=== PATIENT | male | born 1960 | race Caucasian/White ===

== ENCOUNTER → 2017-10-20 | Outpatient (CLI) | payer BC ==
[~2017-10-20] MED LIST: OPTIRAY 320 IV PRN
--- NOTE | 2017-10-20 16:45 | DIAGNOSTIC IMAGING REPORT ---
ABD/PELVIS COMBO WITH ORAL CLINICAL HISTORY: 56 years-old Male presenting with HEPATOMEGALY. TECHNIQUE: Multidetector CT of the abdomen and pelvis was performed before and after the administration of intravenous contrast. IV contrast: 93 mL of Optiray 320. A dose lowering technique was used consistent with the principles of ALARA (as low as reasonably achievable). COMPARISON: Ultrasound from 01/04/2011. CT DOSE (mGy.cm): The estimated cumulative dose is 2234.01 mGy.cm. FINDINGS: [employer] topogram: Unremarkable. Lung bases: Lungs and pleural spaces clear. Top normal heart size. Coronary artery calcification. No pericardial or pleural effusion. Liver: Normal morphology. Density consistent with hepatic steatosis. Diffusely heterogeneous enhancement pattern of the liver. No discrete lesion. Patent hepatic vasculature. Biliary: No intrahepatic or extrahepatic biliary ductal dilatation. Gallbladder decompressed. Mild gallbladder wall thickening may be secondary to underdistention. Trace pericholecystic inflammatory change may be secondary. Pancreas: Mild parenchymal atrophy. Spleen: Enlarged measuring over 15 cm in maximal sagittal dimension. Adrenal glands: Normal. Kidneys and ureters: Normal. No hydronephrosis. No nephrolithiasis. Bladder: Circumferential bladder wall thickening. Pelvic organs: Prostate and seminal vesicles normal. Calcification of the vas deferentia likely implies underlying diabetes. Bowel: Few scattered diverticula noted in the descending colon. No bowel obstruction. The appendix is normal. Peritoneal cavity: Trace fluid in the peritoneal cavity. Mild peritoneal thickening may be present along the paracolic gutters. No free intraperitoneal gas. Lymph nodes: Numerous scattered subcentimeter lymph nodes likely reactive. Vasculature: Atherosclerosis of the normal caliber abdominal aorta. IVC patent. Prominent mesenteric vasculature. Esophageal/paraesophageal varices at the level of the gastroesophageal junction. Perigastric varices. Abdominal wall: Normal. Musculoskeletal: Normal. IMPRESSION: 1. Hepatic steatosis and significant heterogeneity of hepatic enhancement pattern. Given the associated trace peritoneal fluid, this could represent steatohepatitis. Correlate with liver function tests. 2. Suspected portal hypertension evidenced by splenomegaly and varices. The report will be called/faxed according to standard departmental protocol. Electronically signed by: Walt Mendiola M.D. 10/20/2017 4:44 PM Dictated Date/Time: 10/20/2017 4:34 PM
== END | disposition home or self-care (01) ==
LOC: C.CTS 15:56
PROVIDERS: ATTEND Internal Medicine
DX: R16.0 Hepatomegaly, not elsewhere classified (principal); K76.0 Fatty (change of) liver, not elsewhere classified

== ENCOUNTER 2020-07-12 14:09 | Observation (INO) ==
--- NOTE | 2020-07-12 15:32 | Emergency Department Note ---
Impression & Plan Angina pectoris, Elevated d-dimer, Cirrhosis ED Provider Note CHIEF COMPLAINT: Chest pain and shortness of breath HISTORY OF PRESENTING ILLNESS: This is a 59-year-old male who presents to the emergency department by private vehicle with complaints of intermittent chest pain and shortness of breath over the past several weeks, which first started in early May when he states he had a "mild heart attack" when he was still living in [place]. Patient states he currently has no symptoms and denies any pain, rating his pain level 0/10. He notes that his chest pain is usually in the middle of his chest and is a pressure, radiates into his neck, he denies any radiation into his back, shoulder or arm. He states he feels mostly short of breath at night when he is lying down, and the chest pain and shortness of breath have woken him up several times in the past few weeks. He notes that he does take Lasix and spironolactone, he has not felt that he had any increased swelling in his feet or legs recently. He does note that his abdomen is larger than usual, he felt that he just gained some weight because of being less active lately. He does note that he has a history of alcohol abuse and was told that he has early stages of liver cirrhosis, he is in the process of trying to get set up with gastroenterology for this. He states that he saw Dr. Hill relating to his recent chest pain and shortness of breath, and states Dr. Hill told him to come to the emergency department to have a cardiac cath. He notes that he was supposed to come in yesterday, but he had some things to take care of and was not able to come in until today. He denies any fevers or chills. He denies any exposures concerning for COVID-19. REVIEW OF SYSTEMS: A complete 10 point review of systems was reviewed with the patient with pertinent positives and negatives as per history of present illness. All else were negative. PAST MEDICAL HISTORY: Hypertension, type 2 diabetes, liver cirrhosis, GERD SOCIAL HISTORY: Lives at home with his , he is a former smoker, also notes former alcohol abuse (denies any use since 2019) ALLERGIES: No known allergies PHYSICAL EXAM: CONSTITUTIONAL: Pleasant and cooperative. Nontoxic-appearing and in no acute distress. Well appearing and well nourished. HEENT: Normocephalic, atraumatic. NECK: Supple, full active range of motion without discomfort. No JVD. RESPIRATORY: Diminished in the bases, otherwise clear to auscultation bilaterally with no wheezing, crackles, rhonchi or stridor. Equal expansion bilaterally. CARDIOVASCULAR: Regular rate and rhythm with no murmurs, rubs or gallops. Normal peripheral perfusion, 2+ distal pulses in all 4 extremities. No pitting edema. GASTROINTESTINAL: Soft, nontender, significantly distended with positive fluid wave. No palpable masses or HSM. Bowel sounds present in all quadrants. No CVA tenderness bilaterally. MUSCULOSKELETAL: Full range of motion of all joints without discomfort. INTEGUMENTARY: No rash or other significant dermatologic conditions noted. NEUROLOGIC: Alert and oriented X 4 with normal affect. Normal strength and sensation in all 4 extremities. Normal speech. Normal gait observed. ED COURSE AND MEDICAL DECISION MAKING: CC: Patient presenting with complaint of chest pain and shortness of breath DIFFERENTIAL DIAGNOSIS: Includes, but not limited to acute coronary syndrome, pulmonary embolism, aortic dissection, pneumothorax, pericarditis, myocarditis, anxiety, musculoskeletal pain, GERD, costochondritis, pneumonia, abdominal ascites, pulmonary edema/CHF, among others. INTERPRETATION OF LABS: Leukopenia, anemia, and thrombocytopenia (not new when compared to previous labs), hyperglycemia, no other significant electrolyte abnormalities, normal renal function, elevated T bili, otherwise normal liver enzymes and lipase. Troponin undetectable. Coagulation factors mildly elevated. Significantly elevated D-dimer. SARS-CoV-2 antigen negative. IMAGING: XR chest 1V portable CLINICAL HISTORY: Atypical chest pain COMPARISON STUDY: No previous studies for comparison. FINDINGS: The heart is at the upper limits of normal in size. There is no failur e. There is no focal pulmonary consolidation. There are no pleural effusions. There is mild hilar prominence likely vascular although mild adenopathy could appear similar. IMPRESSION: 1. AP portable study 2. No evidence of focal pulmonary consolidation 3. No evidence of failure ----- CHEST CTA for PULMONARY ARTERIES CT DOSE: 1454.57 mGycm HISTORY: Shortness of breath. Positive d-dimer. TECHNIQUE: Multiaxial CT images of the chest were performed following the intravenous administration of contrast to evaluate the pulmonary arteries. Maximal intensity projection images were also obtained. A dose lowering technique was utilized adhering to the principles of ALARA. COMPARISON STUDY: None. FINDINGS: Please refer to same day abdomen and pelvis CT for further evaluation of the abdominal structures. The heart is borderline enlarged. No pleural or pericardial effusions. Subcentimeter mediastinal lymph nodes do not meet CT criteria for pathologic involvement. No hilar lymphadenopathy. Mild bilateral gynecomastia. Normal esophagus. No fractures within the visualized osseous structures. Normal caliber thoracic aorta with no evidence for dissection. No filling defects within the pulmonary arteries to suggest pulmonary embolus. No pneumothorax. The central airways are patent. Mild respiratory motion artifact. No focal lung consolidations to suggest pneumonia. No evidence for pulmonary edema. Mild mosaic attenuation within the lungs suggestive of air-trapping. This can be seen in the setting of small airways disease. IMPRESSION: 1. No evidence for pulmonary embolus. 2. No focal lung consolidations to suggest pneumonia. 3. Mild mosaic attenuation within the lungs suggestive of air-trapping. This can be seen in the setting of small airways disease. 4. Borderline cardiomegaly. ----- CT OF THE ABDOMEN AND PELVIS WITH CONTRAST CLINICAL HISTORY: abd distention, short of breath, epigastric pain COMPARISON STUDY: CT of the abdomen and pelvis October 20, 2017. TECHNIQUE: Following IV administration of 118 mL of Optiray-320, axial images of the abdomen and pelvis were obtained from the lung bases to the proximal femurs. Images were reviewed in the axial, sagittal, and coronal planes. IV contrast was administered without complication. Automated exposure control was utilized for the study. A dose lowering technique was utilized adhering to the principles of ALARA. FINDINGS: Please note that the chest CT will be reported separately. No pneumatosis, free air or portal venous gas is present. Nodularity of the liver is noted. The lateral segment of the liver is enlarged. There is probable hepatic steatosis. The findings represent cirrhosis. The main, left and right portal veins are patent. No hepatic lesions are identified although sensitivity for detection of hypervascular lesions is diminished on this portal venous study. Moderate splenomegaly is noted. There is moderate ascites with extensive varices formation. An umbilical hernia is noted. Note is made of a tubular multiloculated fluid-filled focus adjacent to the umbilical hernia that measures 5.1 x 2.3 cm. There is no evidence for a bowel obstruction. The adrenal glands, kidneys and pancreas are unremarkable. There is no biliary or pancreatic ductal dilatation. Moderate gallbladder wall thickening is noted. No acute fracture or suspicious lesion is identified within visual skeletal structures. There is colonic diverticulosis without evidence for acute diverticulitis. IMPRESSION: 1. Cirrhosis with manifestations of portal hypertension including moderate ascites, moderate splenomegaly and extensive varices formation. Patent main, left and right portal veins. Ascites within an umbilical hernia. 2. Moderate gallbladder wall thickening, a nonspecific finding in the setting of cirrhosis. 3. Colonic diverticulosis without evidence for acute diverticulitis. Normal appendix. No bowel obstruction. EKG: Shows normal sinus rhythm with a rate of 64 bpm, prolonged QT, no ST elevation or depression, no ectopy by my interpretation. No previous EKGs available for comparison. MEDICATION RECONCILIATION: I attest that I have personally reviewed the patient's current medication list. INITIAL VITAL SIGNS REVIEW: I reviewed the patient's initial vital signs and interpret them as follows: T: Afebrile; BP: Normotensive; HR: Within normal limits; RR: Within normal limits; Pulse Ox: Within normal limits on room air. MDM SUMMARY: Patient was evaluated at bedside, history and physical exam performed. Patient is alert and oriented, in no acute distress, resting calmly in the stret kaitlynn. He denies any chest pain, shortness of breath, or abdominal pain. He currently has no complaints. Patient does have significant abdominal distention with positive fluid wave consistent with abdominal ascites. His lungs are clear and he does not appear to be fluid overloaded otherwise. Cardiac monitoring: An order was placed for continuous cardiac monitoring. The monitor shows a rate of 68 bpm with normal sinus rhythm. Based on the patient's complaints of intermittent chest pain and shortness of breath, I am concerned for unstable angina. Review of Dr. Hill's outpatient note from yesterday also indicates a concern for unstable angina and wanted the patient to be admitted for a scheduled cardiac cath. His heart score is 5 points, considered moderate risk. Orders were placed for labs including troponin and D-dimer, EKG, and chest x-ray to evaluate for chest pain/shortness of breath. Patient discussed with Dr. Hutchison, who agrees with my assessment, plan, and disposition. Labs and imaging reviewed as above, labs notable for pancytopenia, this does not appear to be new when compared to previous outpatient labs. His troponin was undetectable. His D-dimer was remarkably elevated, because of this a CTA of the chest was ordered to rule out PE. Given his abdominal ascites, I did opt to perform CT of the abdomen/pelvis as well at this time. CT imaging did not demonstrate any evidence for PE or pneumonia. There is borderline cardiomegaly. Patient does have findings of cirrhosis with portal hypertension and moderate ascites on CT of the abdomen. I spoke on the phone with Dr. Hill, Cardiology, he did request that the patient be admitted to internal medicine and cardiology will plan to get him scheduled for cardiac cath during his admission. He also requested the patient be given a one-time dose of 40 mg IV Lasix, this was ordered per his request. He did recommend that the patient get evaluated by GI for his liver disease while he is admitted as well. Patient reassessed multiple times throughout ED stay, he has remained hemodynamically stable, afebrile, and symptom-free. He was updated on all results and plan for admission, all questions were answered to the best of my ability and the patient was agreeable to this plan. I [facility] on the phone [facility], who agreed to evaluate the patient for the admission. GI will be consulted by the inpatient team. Patient was stable at time of admission. The chart was completed utilizing [employer] Speech voice recognition software. Grammatical errors, random word insertions, pronoun errors, and incomplete sentences are an occasional consequence of this system due to software limitations, ambient noise, and hardware issues. Any formal questions or concerns about the content, text, or information contained within the body of this dictation should be directly addressed to the nurse practitioner for clarification. Past Med/Surg History Medical History (Updated 07/12/20 @ 22:08 by LORETA Cervantes) Cirrhosis Diabetes mellitus, type II Esophageal varices Surgical History (Updated 07/12/20 @ 18:54 by Cherri Hassan PA-C) History of colonoscopy History of esophagogastroduodenoscopy (EGD) Family History (Updated 07/12/20 @ 19:30 by Cherri Hassan PA-C) Other Cancer Diabetes Social History (Updated 07/12/20 @ 19:30 by Cherri Hassan PA-C) Smoking Status: Former smoker Hx Alcohol Use: Yes (Former heavy ETOH use. Reports last used in 2019) Hx Substance Use: No Feels Safe at Home: Yes Allergies Allergies Allergy/AdvReac Type Severity Reaction Status Date / Time No Known Allergies Allergy Unverified 07/12/20 16:58 Home Meds Home Medications Medication Instructions Recorded Confirmed ascorbic acid (vitamin C) [Vitamin 500 mg PO 2XWK 07/12/20 07/12/20 C] aspirin 81 mg PO DAILY 07/12/20 07/12/20 cholecalciferol (vitamin D3) 25 mcg PO 2XWK 07/12/20 07/12/20 [Vitamin D3] furosemide 20 mg PO DAILY 07/12/20 07/12/20 glyburide 1.25 mg PO DAILY 07/12/20 07/12/20 metformin 500 mg PO BID 07/12/20 07/12/20 metoprolol succinate 25 mg PO DAILY 07/12/20 07/12/20 multivitamin 1 tab PO DAILY 07/12/20 07/12/20 nitroglycerin 0.4 mg SUBLINGUAL DIRECTED PRN 07/12/20 07/12/20 omeprazole 40 mg PO BID 07/12/20 07/12/20 spironolactone 50 mg PO DAILY 07/12/20 07/12/20 trazodone 50 mg PO HS PRN 07/12/20 07/12/20 vitamin B complex [B Complex] 1 cap PO 3XWK 07/12/20 07/12/20 Results & Data (ED) Vital Signs Vital Signs - 24 hr 07/12/20 14:12 07/12/20 15:28 07/12/20 16:09 Temperature 36.3 C L Temperature Source Temporal Artery Scan Pulse Rate 68 Pulse Rate [Finger] 65 Respiratory Rate 20 16 Respiratory Effort / Characteristics Non-Labored Spontaneous Respiratory Depth Normal Respiratory Pattern Regular Blood Pressure 137/64 Blood Pressure [Right Arm] 122/65 Blood Pressure Mean 88 Blood Pressure Mean [Right Arm] 84 Pulse Oximetry 99 96 95 Oxygen Delivery Method Room Air Room Air Room Air Sepsis Recent Fever Within 48 Hours No Sepsis New/Unexplained Change in Mental Status N/A Sepsis Action Taken by Nursing No Action Required 07/12/20 16:53 07/12/20 18:05 Temperature Temperature Source Pulse Rate Pulse Rate [Finger] 74 76 Respiratory Rate 16 16 Respiratory Effort / Characteristics Non-Labored Respiratory Depth Normal Respiratory Pattern Blood Pressure Blood Pressure [Right Arm] 129/69 128/70 Blood Pressure Mean Blood Pressure Mean [Right Arm] 89 89 Pulse Oximetry 96 96 Oxygen Delivery Method Sepsis Recent Fever Within 48 Hours Sepsis New/Unexplained Change in Mental Status Sepsis Action Taken by Nursing Laboratory Data Result diagrams: 07/12/20 15:20 07/12/20 15:20 Lab Results 07/12/20 07/12/20 07/12/20 Range/Units 15:20 15:20 15:20 WBC 3.00 L (4.8-10.8) K/uL RBC 3.62 L (4.7-6.1) M/uL Hgb 9.2 L (14.0-18.0) g/dL Hct 31.3 L (42-52) % MCV 86.5 (80-100) fL MCH 25.4 (25-34) pg MCHC 29.4 L (32-36) g/dL RDW Std Deviation 46.2 (36.4-46.3) fL RDW Coeff of Lizandro 14.6 H (11.5-14.5) % Plt Count 69 L (130-400) K/uL MPV 9.5 (7.4-10.4) fL Immature Gran % (Auto) 0.0 % Neut % (Auto) 48.2 % Lymph % (Auto) 31.7 % [place] % (Auto) 15.7 % Eos % (Auto) 3.7 % Baso % (Auto) 0.7 % Neut # (Auto) 1.45 (1.4-6.5) K/uL Lymph # (Auto) 0.95 L (1.2-3.4) K/uL [place] # (Auto) 0.47 (0.11-0.59) K/uL Eos # (Auto) 0.11 (0-0.5) K/uL Baso # (Auto) 0.02 (0-0.2) K/uL Immature Gran # (Auto) 0.00 (0.00-0.02) K/uL Platelet Estimate Decreased L (Normal) PT 14.8 H (9.0-12.0) Seconds INR 1.4 H (0.9-1.1) APTT 28.1 (21.0-31.0) Seconds PTT Ratio 1.0 D-Dimer 4380 H* (0-500) ug/L FEU Sodium 137 (136-145) mmol/L Potassium 4.0 (3.5-5.1) mmol/L Chloride 107 (98-107) mmol/L Carbon Dioxide 26 (21-32) mmol/L Anion Gap 4.0 (3-11) BUN 7 (7-18) mg/dl Creatinine 0.71 (0.6-1.4) mg/dl Est Cr Clr Drug Dosing 120.7 ml/min Est GFR ( Amer) 117.4 Est GFR (Non-Af Amer) 101.3 BUN/Creatinine Ratio 10.1 (10-20) Glucose 175 H (70-99) mg/dl Calcium 8.4 L (8.5-10.1) mg/dl Total Bilirubin 1.5 H (0.2-1) mg/dl AST 28 (15-37) U/L ALT 23 (12-78) U/L Alkaline Phosphatase 97 (45-117) U/L Troponin I < 0.015 (0-0.045) ng/ml Total Protein 7.5 (6.4-8.2) gm/dl Albumin 3.1 L (3.4-5.0) gm/dl Globulin 4.4 H (2.5-4.0) gm/dl Albumin/Globulin Ratio 0.7 L (0.9-2) Lipase 145 (73-393) U/L Administered Medications Discontinued Medications Furosemide (Furosemide 40 Mg/4 Ml Vial) 40 mg IV NOW STA Stop: 07/12/20 17:19 Last Admin: 07/12/20 18:07 Dose: 40 mg Documented by: [id number] Ioversol (Optiray 320 125ml) 118 ml IV ONCE ONE Stop: 07/12/20 16:43 Last Admin: 07/12/20 16:43 Dose: 118 ml Documented by: [id number] Discharge Plan Visit Data Chief Complaint: Cardiac Assessment Stated Complaint: REFERRED BY ED Provider: Yaw Hutchison ED Midlevel Provider: Angela Parisi Discharge Problem: Angina pectoris, Elevated d-dimer, Cirrhosis Patient Disposition: Admitted As Inpatient Condition: Good Discharge Instructions Interventions: ED Discharge Assessment Last Done: 07/12/20 20:23 Discharge Problem: Cirrhosis Qualifiers: Hepatic cirrhosis type: alcoholic cirrhosis Ascites presence: with ascites Qualified Code(s): K70.31 - Alcoholic cirrhosis of liver with ascites
--- NOTE | 2020-07-12 15:49 | XRay Report ---
XR chest 1V portable CLINICAL HISTORY: Atypical chest pain COMPARISON STUDY: No previous studies for comparison. FINDINGS: The heart is at the upper limits of normal in size. There is no failure. There is no focal pulmonary consolidation. There are no pleural effusions. There is mild hilar prominence likely vascul ar although mild adenopathy could appear similar.[ IMPRESSION: 1. AP portable study 2. No evidence of focal pulmonary consolidation 3. No evidence of failure ACT 112: Negative or not required by law. Electronically signed by: Kodak Rubi M.D. 07/12/2020 3:48 PM
[2020-07-12 16:05] LABS: INR 1.4 (0.9-1.1); Partial Thromboplastin Time 28.1 Seconds (21.0-31.0); Prothrombin Time 14.8 Seconds (9.0-12.0)
[2020-07-12 16:07] LABS: Alanine Aminotransferase 23 U/L (12-78); Albumin Level 3.1 gm/dl (3.4-5.0); Aspartate Aminotransferase 28 U/L (15-37); BUN Creatinine Ratio 10.1 (10-20); Blood Urea Nitrogen 7 mg/dl (7-18); Calcium 8.4 mg/dl (8.5-10.1); Carbon Dioxide 26 mmol/L (21-32); Chloride 107 mmol/L (98-107); Creatinine Clr Calc Pharmacy 120.7 ml/min; Est GFR (African American) 117.4; Est GFR (Non-African American) 101.3; Glucose 175 mg/dl (70-99); Lipase 145 U/L (73-393); Sodium 137 mmol/L (136-145)
[2020-07-12 16:12] LABS: Albumin Globulin Ratio 0.7 (0.9-2); Alkaline Phosphatase 97 U/L (45-117); Bilirubin,Total 1.5 mg/dl (0.2-1); Globulin 4.4 gm/dl (2.5-4.0); Total Protein 7.5 gm/dl (6.4-8.2); Troponin I < 0.015 ng/ml (0-0.045)
[2020-07-12 16:18] LABS: Hematocrit (blood only) 31.3 % (42-52); Hemoglobin 9.2 g/dL (14.0-18.0); Mean Corpuscular Hemoglobin 25.4 pg (25-34); Mean Corpuscular Hgb Conc 29.4 g/dL (32-36); Mean Corpuscular Volume 86.5 fL (80-100); Mean Platelet Volume 9.5 fL (7.4-10.4); Platelet Count 69 K/uL (130-400); RDW Coefficient of Variation 14.6 % (11.5-14.5); RDW Standard Deviation 46.2 fL (36.4-46.3); Red Blood Count 3.62 M/uL (4.7-6.1)
[2020-07-12 16:19] LABS: Basophils # (auto) 0.02 K/uL (0-0.2); Basophils % (auto) 0.7 %; Eosinophils # (auto) 0.11 K/uL (0-0.5); Eosinophils % (auto) 3.7 %; Lymphocytes # (auto) 0.95 K/uL (1.2-3.4); Lymphocytes % (auto) 31.7 %; Monocytes # (auto) 0.47 K/uL (0.11-0.59); Monocytes % (auto) 15.7 %; Neutrophils # (auto) 1.45 K/uL (1.4-6.5); Neutrophils % (auto) 48.2 %; Platelet Estimate Decreased (Normal)
[2020-07-12 16:23] LABS: D Dimer 4380 ug/L FEU (0-500)
[2020-07-12] MEDS ORDERED: OPTIRAY 320 125ml IV ONE (16:42)
--- NOTE | 2020-07-12 16:59 | CT Scan Report ---
CHEST CTA for PULMONARY ARTERIES CT DOSE: 1454.57 mGycm HISTORY: Shortness of breath. Positive d-dimer. TECHNIQUE: Multiaxial CT images of the chest were performed following the intravenous administration of contrast to evaluate the pulmonary arteries. Maximal intensity projection images were also obtaine d. A dose lowering technique was utilized adhering to the principles of ALARA. COMPARISON STUDY: None. FINDINGS: Please refer to same day abdomen and pelvis CT for further evaluation of the abdominal stru ctures. The heart is borderline enlarged. No pleural or pericardial effusions. Subcentimeter mediasti nal lymph nodes do not meet CT criteria for pathologic involvement. No hilar lymphadenopathy. Mild bi lateral gynecomastia. Normal esophagus. No fractures within the visualized osseous structures. Normal caliber thoracic aorta with no evidence for dissection. No filling defects within the pulmonary kimberly sabine to suggest pulmonary embolus. No pneumothorax. The central airways are patent. Mild respiratory motion artifact. No focal lung consolidations to suggest pneumonia. No evidence for pulmonary edema. Mild mosaic attenuation within the lungs suggestive of air-trapping. This can be seen in the setting of small airways disease. IMPRESSION: 1. No evidence for pulmonary embolus. 2. No focal lung consolidations to suggest pneumonia. 3. Mild mosaic attenuation within the lungs suggestive of air-trapping. This can be seen in the setti ng of small airways disease. 4. Borderline cardiomegaly. ACT 112: Negative or not required by law. Electronically signed by: Austin Oropeza M.D. 07/12/2020 4:58 PM
--- NOTE | 2020-07-12 17:16 | CT Scan Report ---
CT OF THE ABDOMEN AND PELVIS WITH CONTRAST CLINICAL HISTORY: abd distention, short of breath, epigastric pain COMPARISON STUDY: CT of the abdomen and pelvis October 20, 2017. TECHNIQUE: Following IV administration of 118 mL of Optiray-320, axial images of the abdomen and pelv is were obtained from the lung bases to the proximal femurs. Images were reviewed in the axial, sagit arpit, and coronal planes. IV contrast was administered without complication. Automated exposure contr ol was utilized for the study. A dose lowering technique was utilized adhering to the principles of ALARA. FINDINGS: Please note that the chest CT will be reported separately. No pneumatosis, free air or port al venous gas is present. Nodularity of the liver is noted. The lateral segment of the liver is enlar ged. There is probable hepatic steatosis. The findings represent cirrhosis. The main, left and right portal veins are patent. No hepatic lesions are identified although sensitivity for detection of hype rvascular lesions is diminished on this portal venous study. Moderate splenomegaly is noted. There is moderate ascites with extensive varices formation. An umbilical hernia is noted. Note is made of a t ubular multiloculated fluid-filled focus adjacent to the umbilical hernia that measures 5.1 x 2.3 cm. There is no evidence for a bowel obstruction. The adrenal glands, kidneys and pancreas are unremarka ble. There is no biliary or pancreatic ductal dilatation. Moderate gallbladder wall thickening is not ed. No acute fracture or suspicious lesion is identified within visual skeletal structures. There is colonic diverticulosis without evidence for acute diverticulitis. IMPRESSION: 1. Cirrhosis with manifestations of portal hypertension including moderate ascites, moderate splenome gopi and extensive varices formation. Patent main, left and right portal veins. Ascites within an umb ilical hernia. 2. Moderate gallbladder wall thickening, a nonspecific finding in the setting of cirrhosis. 3. Colonic diverticulosis without evidence for acute diverticulitis. Normal appendix. No bowel obstru ction. ACT 112: Negative or not required by law. Electronically signed by: Lei Unger M.D. 07/12/2020 5:15 PM
[2020-07-12] MEDS ORDERED: FUROSEMIDE 40 MG/4 ML VIAL IV STA (17:18)
--- NOTE | 2020-07-12 18:44 | History & Physical Report ---
Date of Service July 12, 2020 Assessment & Plan (1) Angina pectoris: Pt is 59 y/o M with PMH cirrhosis, esophageal varices, prior alcohol use, DM II presented to ER for intermittent CP/SOB with exertion x several months No Current CP or SOB at rest. Outpatient Echo 07/11/2020: EF >70%, no significant valvular heart disease, grade 1 diastolic dysfunction. Outpatient lipids 06/2020: Total: 134, HDL: 52, LDL: 67, triglycerides: 76 In ER negative troponin, EKG sinus rhythm, prolonged Qtc Pt received lasix 40mg IV and had 540ml urine output recorded in ER during my examination. Had 2 prior voids that were undocumented. Will reassess output and volume status in the morning to determine further Lasix dosing. Continue home spironolactone NPO midnight in case of procedure Trend troponin Cardiology consult A.m. labs (2) Elevated d-dimer: In ER D-dimer: 4380 CTA Chest no PE (3) Cirrhosis: ETOH cirrhosis w/ varices banded in 2019 Prior ETOH use. Reports last 2018 CT ABD/PELVIS: Cirrhosis with manifestations of portal hypertension including moderate ascites, moderate splenomegaly and extensive varices formation. Patent main, left and right portal veins. Ascites within an umbilical hernia. H/H: 9.2/31 (Hgb 9.9 in 06/25), PLT: 69 (62 in 06/2020 ), INR: 1.4, at baseline Continue spironolactone Monitor volume status in a.m. to determine further Lasix Recommend continued GI follow-up. May need to consider inpatient GI consult (4) Diabetes mellitus, type II: A1c: 6.2 in 06/2020 Hold oral meds NovoLog sliding scale per protocol DVT Prophylaxis -SCDs Full Code as per discussion with pt, however would not prolonged life support if poor prognosis Follows with Dr Grace for routine care Pt was seen and care coordinated with Dr Sheridan. See addendum History of Present Illness Chief Complaint: CP Primary Care Provider: Brenda Grace MD Pt is 59 y/o M with PMH cirrhosis, esophageal varices, prior alcohol use, DM II presented to ER for intermittent chest pain. Patient was referred to hospital by cardiology, Dr. Hill yesterday however patient came today. He reports he has been having intermittent chest pain and shortness of breath with exertion for several months. Also reports PND. Reports was told had mild heart attack in 05/2020 in [place]. Pt states did not have cardiac cath at that time. Saw cardiology yesterday and was restarted on metoprolol and goal of cardiac catheterization. Had outpatient echo yesterday with EF >70%, no significant valvular heart disease, grade 1 diastolic dysfunction. Pt denies any current CP or SOB. Reports has gained approximately 8 pounds over the past couple weeks. He denies any noted extremity edema or increased abdominal girth. Is getting established with [facility] and has abdominal ultrasound scheduled for 07/14/2020. Pt reports last ETOH drink in 2019. Denies fever/chills, diaphoresis, N/V/D/C, RASHEED, dizziness, syncope, vision changes, neck pain, palpitations, cough, sore throat, choking, otalgia, rhinorrhea, abdominal pain, paresthesias, weakness, extremity weakness, rashes, urinary symptoms. Pt received lasix 40mg IV and had 540ml urine output recorded in ER during my examination. Had 2 prior voids that were undocumented. Allergies Allergy/AdvReac Type Severity Reaction Status Date / Time No Known Allergies Allergy Unverified 07/12/20 16:58 Home Medications Medication Instructions Recorded Confirmed Type ascorbic acid (vitamin C) [Vitamin 500 mg PO 2XWK 07/12/20 07/12/20 History C] aspirin 81 mg PO DAILY 07/12/20 07/12/20 History cholecalciferol (vitamin D3) 25 mcg PO 2XWK 07/12/20 07/12/20 History [Vitamin D3] furosemide 20 mg PO DAILY 07/12/20 07/12/20 History glyburide 1.25 mg PO DAILY 07/12/20 07/12/20 History metformin 500 mg PO BID 07/12/20 07/12/20 History metoprolol succinate 25 mg PO DAILY 07/12/20 07/12/20 History multivitamin 1 tab PO DAILY 07/12/20 07/12/20 History nitroglycerin 0.4 mg SUBLINGUAL DIRECTED PRN 07/12/20 07/12/20 History omeprazole 40 mg PO BID 07/12/20 07/12/20 History spironolactone 50 mg PO DAILY 07/12/20 07/12/20 History trazodone 50 mg PO HS PRN 07/12/20 07/12/20 History vitamin B complex [B Complex] 1 cap PO 3XWK 07/12/20 07/12/20 History Past Med/Surg History Medical History (Updated 07/13/20 @ 00:21 by Sonia Sheridan DO) Cirrhosis Diabetes mellitus, type II Esophageal varices Surgical History (Updated 07/12/20 @ 18:54 by Cherri Hassan PA-C) History of colonoscopy History of esophagogastroduodenoscopy (EGD) Family History (Updated 07/12/20 @ 19:30 by Cherri Hassan PA-C) Other Cancer Diabetes Social History (Updated 07/12/20 @ 19:30 by Cherri Hassan PA-C) Smoking Status: Former smoker Do You Dip or Chew Tobacco: No; Hx Alcohol Use: No Hx Substance Use: No Preferred Language: Filipino Communication Ability: Effective Industrial Court Magistrate Required: No Beliefs That Will Affect Care: None Current Living Situation: Spouse Other Information That Helps Us Care for You: Yes Feels Safe at Home: Yes Safety Concerns: Feels Safe At This Time Assistive Devices: Glasses Review of Systems Review of Systems: All systems reviewed & are unremarkable except as noted in HPI & below Physical Exam Physical Exam: General: no distress, overweight Head: normocephalic, atraumatic Eyes: PERRL, EOM's intact, conjunctiva non-injected, anicteric ENT: normal inspection external ears, nose, mucous membranes moist Neck: supple, trachea midline Lungs: clear, no respiratory distress, no wheezing/rhonchi/rales CV: RRR, no murmur, no JVD, trace pretibial edema Abd: protuberant, normal BS, soft, non-tender Ext: no cyanosis, no calf tenderness Neuro: A&O x 3, no focal deficits noted, normal affect Skin: warm, dry Results & Data Results & Data ([facility]) Vital Signs (Past 12 Hours) Vital Signs Temp Pulse Pulse Resp BP BP Pulse Ox 07/12/20 18:05 76 16 128/70 96 07/12/20 16:53 74 16 129/69 96 07/12/20 16:09 65 16 122/65 95 07/12/20 15:28 96 07/12/20 14:12 36.3 C L 68 20 137/64 99 Laboratory Results Short CBC 07/12/20 Range/Units 15:20 WBC 3.00 L (4.8-10.8) K/uL Hgb 9.2 L (14.0-18.0) g/dL Hct 31.3 L (42-52) % Plt Count 69 L (130-400) K/uL BMP 07/12/20 15:20 Sodium 137 Potassium 4.0 Chloride 107 Carbon Dioxide 26 BUN 7 Creatinine 0.71 Glucose 175 H Calcium 8.4 L Cardiac Enzymes 07/12/20 Range/Units 15:20 Troponin I < 0.015 (0-0.045) ng/ml Liver Function 07/12/20 Range/Units 15:20 Total Bilirubin 1.5 H (0.2-1) mg/dl AST 28 (15-37) U/L ALT 23 (12-78) U/L Alkaline Phosphatase 97 (45-117) U/L Albumin 3.1 L (3.4-5.0) gm/dl Diagnostic Findings CT ABD/PELVIS: IMPRESSION: 1. Cirrhosis with manifestations of portal hypertension including moderate ascites, moderate splenomegaly and extensive varices formation. Patent main, left and right portal veins. Ascites within an umbilical hernia. 2. Moderate gallbladder wall thickening, a nonspecific finding in the setting of cirrhosis. 3. Colonic diverticulosis without evidence for acute diverticulitis. Normal appendix. No bowel obstruction. CTA CHEST: IMPRESSION: 1. No evidence for pulmonary embolus. 2. No focal lung consolidations to suggest pneumonia. 3. Mild mosaic attenuation within the lungs suggestive of air-trapping. This can be seen in the setting of small airways disease. 4. Borderline cardiomegaly. CXR: IMPRESSION: 1. AP portable study 2. No evidence of focal pulmonary consolidation 3. No evidence of failure ECG Rate (beats per minute): 64 Rhythm: sinus rhythm Code Status & VTE Plan VTE Prophylaxis Plan VTE Prophylaxis will be ordered: Yes Supervising Physician Co-Signing Physician Notes I have seen and examined the patient and have discussed the case with the provider above. I agree with the assessment and plan as stated with the following exceptions. This is a 59 yo alcoholic cirrhotic patient who was diagnosed with cirrhosis two years ago. He reports that in the last couple of weeks he has not been compliant with his oral diuretic therapy and has noted a 10 lb weight gain. He only reports some atypical chest pain approximately 2-3 times er month. He states that what is more important to him are his episodes of shortness of breath which are occurring with exertion and when he moves into the cold air. On exam he has a fluid wave consistent with ascites. Cardiac exam is normal and there is no peripheral edema. Lungs are clear to auscultation. We briefly touched on discussing transplant possibilities with the GI team-MELD is 12. He has been sober for >6 months. We discussed the importance of diiuretic compliance as written. He verbalized understanding with intent to comply. GI and Cardiology to see him in am. US abdomen ordered. Arvin,
[2020-07-12] MEDS ORDERED: GLUCAGON FOR INJ 1 MG VIAL SQ PRN (21:29)
[2020-07-12] MEDS ORDERED: GLUCOSE 40% GEL 15 GM TUBE PO PRN (21:29)
[2020-07-12] MEDS ORDERED: ACETAMINOPHEN 325 MG TAB PO PRN (21:29)
[2020-07-12] MEDS ORDERED: CARBOHYDRATES FOR HYPOGLYCEMIA PO PRN (21:29)
[2020-07-12] MEDS ORDERED: GLUCOSE 10 TABS/TUBE PO PRN (21:29)
[2020-07-12] MEDS ORDERED: NITROGLYCERIN SL 0.4 MG/TAB TAB SL PRN (21:29)
[2020-07-12] MEDS ORDERED: DEXTROSE 50% 50 ML SYRINGE IV PRN (21:29)
[2020-07-12] MEDS: PANTOprazole 40 MG TAB PO SCH (22:22)
[2020-07-12] MEDS: INSULIN ASPART 100 UNITS/ML 3 ML PEN SC SCH (22:24)
[2020-07-13 03:59] LABS: Hematocrit (blood only) 28.2 % (42-52); Hemoglobin 8.2 g/dL (14.0-18.0); Mean Corpuscular Hemoglobin 25.1 pg (25-34); Mean Corpuscular Hgb Conc 29.1 g/dL (32-36); Mean Corpuscular Volume 86.2 fL (80-100); RDW Coefficient of Variation 14.7 % (11.5-14.5); RDW Standard Deviation 46.7 fL (36.4-46.3); Red Blood Count 3.27 M/uL (4.7-6.1); White Blood Count 3.17 K/uL (4.8-10.8)
[2020-07-13 04:07] LABS: Mean Platelet Volume 9.7 fL (7.4-10.4); Platelet Count 70 K/uL (130-400)
[2020-07-13 04:24] LABS: Alanine Aminotransferase 22 U/L (12-78); Albumin Level 2.8 gm/dl (3.4-5.0); Aspartate Aminotransferase 30 U/L (15-37); BUN Creatinine Ratio 11.7 (10-20); Blood Urea Nitrogen 8 mg/dl (7-18); Calcium 8.1 mg/dl (8.5-10.1); Carbon Dioxide 28 mmol/L (21-32); Chloride 107 mmol/L (98-107); Creatinine Clr Calc Pharmacy 133.1 ml/min; Est GFR (African American) 122.5; Est GFR (Non-African American) 105.7; Glucose 147 mg/dl (70-99); Potassium 3.8 mmol/L (3.5-5.1); Sodium 138 mmol/L (136-145)
[2020-07-13 04:29] LABS: Albumin Globulin Ratio 0.7 (0.9-2); Alkaline Phosphatase 89 U/L (45-117); Bilirubin,Total 1.1 mg/dl (0.2-1); Globulin 4.1 gm/dl (2.5-4.0); Total Protein 6.9 gm/dl (6.4-8.2); Troponin I < 0.015 ng/ml (0-0.045)
[2020-07-13] MEDS: PANTOprazole 40 MG TAB PO SCH ×2 (08:17→20:34)
[2020-07-13] MEDS: METOPROLOL SUCC 25MG EXT REL TAB PO SCH (08:18)
[2020-07-13] MEDS: INSULIN ASPART 100 UNITS/ML 3 ML PEN SC SCH ×4 (08:19→20:33)
[2020-07-13] MEDS ORDERED: FUROSEMIDE 20 MG TAB PO SCH (09:00)
[2020-07-13] MEDS ORDERED: SPIRONOLACTONE 25 MG TAB PO SCH (09:00)
[2020-07-13] MEDS ORDERED: MULTIVITAMIN TAB PO SCH (09:00)
[2020-07-13] MEDS ORDERED: ASPIRIN 81 MG ECTAB PO SCH (09:00)
--- NOTE | 2020-07-13 09:32 | Cardiology Consultation ---
Date of Consultation July 13, 2020 Assessment & Plan (1) Chest pain: (2) Noncompliance with medication regimen: (3) Anemia: (4) Thrombocytopenia: (5) Cirrhosis: (6) H/O alcohol abuse: (7) Esophageal varices: (8) Diabetes mellitus, type II: (9) Normal nuclear stress test: My initial concern was that the patient was suffering from unstable angina, however, given the fact that he symptoms have resolved, was noncompliant with his medications and now with chest pain being resolved after receiving 1 dose of diuretics I am less suspicious of ischemia. Recent outpatient Lexiscan nuclear stress test was nonischemic and repeat echocardiogram in our office showed no new wall motion abnormalities. Of further concern, is the patient's significant thrombocytopenia, anemia and esophageal varices. I would be very hesitant to proceed with cardiac catheterization given the possible need for dual antiplatelet therapy given the above. This was discussed with the patient at great length today and he is in agreement. Appreciate input from our GI colleagues, for paracentesis today. I have increase his spironolactone to 100 mg daily and will give 1 more dose of IV Lasix this afternoon. Ideally would recommend discharging on spironolactone 100 mg daily along with Lasix 40 mg daily The need for medication adherence was stressed at great lengths to the patient and he states that he will not comply. Continue metoprolol started as an outpatient Recommend monitoring on telemetry overnight for any recurrence of symptoms and likely discharge in the a.m. Patient is in agreement with this plan History of Present Illness Reason for Consultation: chest pain/sob Requesting Physician: Dr. Saucedo Attending Physician: Martínez Saucedo MD History of Present Illness Mr. Huntley is a 59-year-old gentleman who was seen by myself for the first time as an outpatient on 07/11/2020 with complaints of chest discomfort and shortness of breath. Patiently recently moved to the [facility] and was previously residing in [facility]. He noted that he was having chest discomfort or shortness of breath for several months. He was seen at a hospital in [place] for chest discomfort. He was seen by cardiology at that time and was reported an echocardiogram and Lexiscan nuclear stress test were both unremarkable. He was then discharged with no other cardiac follow-up in [place]. His visit with me noted that he has been under a great deal of stress lately trying to close on the house scheduled for 07/14/2020. He related that he was having chest discomfort with exertion, dyspnea on exertion and orthopnea. He also carries a history of cirrhosis and only recently established with GI. And a work-up was ordered. Inpatient admission for further ischemic evaluation was recommended at that time, however, the patient declined stating that he wanted to take care of his finances. He then presented to the emergency department on 07/12/2020. At that time I recommended he receive IV Lasix and he diuresed significantly overnight. Currently states he is feeling much better after receiving IV Lasix. He now admits that he is not been compliant with his outpatient Lasix or spironolactone for some time now. He is also been living in a hotel and eating takeout high salty meals for several weeks. He denies any recent alcohol abuse. He states he has not had any further chest discomfort since being seen by me as an outpatient and is now questioning whether or not this would be due to stress. PAST MEDICAL HISTORY: 1. History of cirrhosis 2. Esophageal varices status post banding 3. Uncontrolled diabetes 4. Previous heavy alcohol use 5. History of tobacco abuse 6. Elevated BMI Allergies Allergy/AdvReac Type Severity Reaction Status Date / Time No Known Allergies Allergy Unverified 07/12/20 16:58 Home Medications Medication Instructions Recorded Confirmed Type ascorbic acid (vitamin C) [Vitamin 500 mg PO 2XWK 07/12/20 07/12/20 History C] aspirin 81 mg PO DAILY 07/12/20 07/12/20 History cholecalciferol (vitamin D3) 25 mcg PO 2XWK 07/12/20 07/12/20 History [Vitamin D3] furosemide 20 mg PO DAILY 07/12/20 07/12/20 History glyburide 1.25 mg PO DAILY 07/12/20 07/12/20 History metformin 500 mg PO BID 07/12/20 07/12/20 History metoprolol succinate 25 mg PO DAILY 07/12/20 07/12/20 History multivitamin 1 tab PO DAILY 07/12/20 07/12/20 History nitroglycerin 0.4 mg SUBLINGUAL DIRECTED PRN 07/12/20 07/12/20 History omeprazole 40 mg PO BID 07/12/20 07/12/20 History spironolactone 50 mg PO DAILY 07/12/20 07/12/20 History trazodone 50 mg PO HS PRN 07/12/20 07/12/20 History vitamin B complex [B Complex] 1 cap PO 3XWK 07/12/20 07/12/20 History Patient History Medical History Cirrhosis Diabetes mellitus, type II Esophageal varices Surgical History History of colonoscopy History of esophagogastroduodenoscopy (EGD) Family History Other Cancer Diabetes Social History Smoking Status: Former smoker Do You Dip or Chew Tobacco: No; Hx Alcohol Use: No Hx Substance Use: No Preferred Language: Lao Communication Ability: Effective [employer] Cracking Tester Required: No Beliefs That Will Affect Care: None Current Living Situation: Spouse Other Information That Helps Us Care for You: Yes Feels Safe at Home: Yes Safety Concerns: Feels Safe At This Time Assistive Devices: Glasses Review of Systems Review of Systems: All systems reviewed & are unremarkable except as noted in HPI & below Physical Exam Physical Exam: General: Awake, alert and oriented x 3. No acute distress. HEENT: Normocephalic, atraumatic. Pupils equal, round and reactive to light and accommodation. Extraocular muscles are intact. Anicteric sclera. Moist mucous membranes. Neck: No JVD. No bruit. Cardiovascular: Regular. Positive S-4. Normal S-1 and S-2. No S-3. 3/6 mid to late systolic ejection murmur, greatest at the right sternal border, second i ntercostal space with radiation to the bilateral carotids. No rubs. Pulmonary: Clear to auscultation bilaterally. No rales, rhonchi, or wheezing. Abdomen: Bowel sounds x 4, distended. No rebound, guarding or tenderness. No organomegaly. Extremities: No clubbing, cyanosis or edema. +2 pedal pulses bilaterally. Skin: Warm and dry. Results & Data ([facility]) Vital Signs (Past 12 Hours) Vital Signs Temp Pulse Pulse Resp BP Pulse Ox 07/13/20 08:11 36.5 C 80 16 119/64 99 07/13/20 04:00 36.7 C 81 18 134/80 97 07/13/20 00:11 36.8 C 82 16 131/76 97 07/12/20 23:00 84 Laboratory Results Laboratory Results - last 24 hr 07/12/20 07/12/20 07/12/20 15:20 15:20 15:20 WBC 3.00 L RBC 3.62 L Hgb 9.2 L Hct 31.3 L MCV 86.5 MCH 25.4 MCHC 29.4 L RDW Std Deviation 46.2 RDW Coeff of Lizandro 14.6 H Plt Count 69 L MPV 9.5 Immature Gran % (Auto) 0.0 Neut % (Auto) 48.2 Lymph % (Auto) 31.7 Hardy % (Auto) 15.7 Eos % (Auto) 3.7 Baso % (Auto) 0.7 Neut # (Auto) 1.45 Lymph # (Auto) 0.95 L Hardy # (Auto) 0.47 Eos # (Auto) 0.11 Baso # (Auto) 0.02 Immature Gran # (Auto) 0.00 Platelet Estimate Decreased L PT 14.8 H INR 1.4 H APTT 28.1 PTT Ratio 1.0 D-Dimer 4380 H* Sodium 137 Potassium 4.0 Chloride 107 Carbon Dioxide 26 Anion Gap 4.0 BUN 7 Creatinine 0.71 Est Cr Clr Drug Dosing 120.7 Est GFR ( Amer) 117.4 Est GFR (Non-Af Amer) 101.3 BUN/Creatinine Ratio 10.1 Glucose 175 H POC Glucose Calcium 8.4 L Total Bilirubin 1.5 H AST 28 ALT 23 Alkaline Phosphatase 97 Troponin I < 0.015 Total Protein 7.5 Albumin 3.1 L Globulin 4.4 H Albumin/Globulin Ratio 0.7 L Lipase 145 SARS-CoV-2 Ag (Rapid) 07/12/20 07/12/20 07/12/20 21:50 21:54 Unknown WBC RBC Hgb Hct MCV MCH MCHC RDW Std Deviation RDW Coeff of Lizandro Plt Count MPV Immature Gran % (Auto) Neut % (Auto) Lymph % (Auto) Hardy % (Auto) Eos % (Auto) Baso % (Auto) Neut # (Auto) Lymph # (Auto) Hardy # (Auto) Eos # (Auto) Baso # (Auto) Immature Gran # (Auto) Platelet Estimate PT INR APTT PTT Ratio D-Dimer Sodium Potassium Chloride Carbon Dioxide Anion Gap BUN Creatinine Est Cr Clr Drug Dosing Est GFR ( Amer) Est GFR (Non-Af Amer) BUN/Creatinine Ratio Glucose POC Glucose 252 H Calcium Total Bilirubin AST ALT Alkaline Phosphatase Troponin I < 0.015 Total Protein Albumin Globulin Albumin/Globulin Ratio Lipase SARS-CoV-2 Ag (Rapid) Negative 07/13/20 07/13/20 07/13/20 03:26 03:26 07:43 WBC 3.17 L RBC 3.27 L Hgb 8.2 L Hct 28.2 L MCV 86.2 MCH 25.1 MCHC 29.1 L RDW Std Deviation 46.7 H RDW Coeff of Lizandro 14.7 H Plt Count 70 L MPV 9.7 Immature Gran % (Auto) Neut % (Auto) Lymph % (Auto) Hardy % (Auto) Eos % (Auto) Baso % (Auto) Neut # (Auto) Lymph # (Auto) Hardy # (Auto) Eos # (Auto) Baso # (Auto) Immature Gran # (Auto) Platelet Estimate PT INR APTT PTT Ratio D-Dimer Sodium 138 Potassium 3.8 Chloride 107 Carbon Dioxide 28 Anion Gap 3.0 BUN 8 Creatinine 0.64 Est Cr Clr Drug Dosing 133.1 Est GFR ( Amer) 122.5 Est GFR (Non-Af Amer) 105.7 BUN/Creatinine Ratio 11.7 Glucose 147 H POC Glucose 156 H Calcium 8.1 L Total Bilirubin 1.1 H AST 30 ALT 22 Alkaline Phosphatase 89 Troponin I < 0.015 Total Protein 6.9 Albumin 2.8 L Globulin 4.1 H Albumin/Globulin Ratio 0.7 L Lipase SARS-CoV-2 Ag (Rapid) Medications Administered Current Inpatient Medications Acetaminophen (Acetaminophen 325 Mg Tab) 650 mg PO Q4H PRN PRN Reason: Pain or Fever Stop: 08/11/20 21:28 Aspirin (Aspirin 81 Mg Ectab) 81 mg PO DAILY JODY Stop: 08/12/20 08:59 Last Admin: 07/13/20 08:18 Dose: 81 mg Documented by: Dextrose (Dextrose 50% 50 Ml Syringe) 25 - 50 ml IV UD PRN; Protocol PRN Reason: Hypoglycemia Protocol Stop: 08/11/20 21:28 Furosemide (Furosemide 20 Mg Tab) 20 mg PO DAILY JODY Stop: 08/12/20 08:59 Last Admin: 07/13/20 08:17 Dose: 20 mg Documented by: Glucagon (Glucagon For Inj 1 Mg Vial) 1 mg SQ UD PRN; Protocol PRN Reason: Hypoglycemia Protocol Stop: 08/11/20 21:28 Glucose (Glucose 10 Tabs/Tube) 4 - 8 tabs PO UD PRN; Protocol PRN Reason: Hypoglycemia Protocol Stop: 08/11/20 21:28 Glucose (Glucose 40% Gel 15 Gm Tube) 15 - 30 gm PO UD PRN; Protocol PRN Reason: Hypoglycemia Protocol Stop: 08/11/20 21:28 Insulin Aspart (Insulin Aspart 100 Units/Ml 3 Ml Pen) 0 units SC ACHS JODY Stop: 08/11/20 21:28 Last Admin: 07/13/20 08:19 Dose: Not Given Documented by: Metoprolol Succinate (Metoprolol Succ 25mg Ext Rel Tab) 25 mg PO DAILY JODY Stop: 08/12/20 08:59 Last Admin: 07/13/20 08:18 Dose: 25 mg Documented by: Miscellaneous (Carbohydrates For Hypoglycemia ) 15 - 30 gm PO UD PRN PRN Reason: Hypoglycemia Protocol Stop: 08/11/20 21:28 Multivitamins (Multivitamin Tab) 1 tab PO DAILY JODY Stop: 08/12/20 08:59 Last Admin: 07/13/20 08:18 Dose: 1 tab Documented by: Nitroglycerin (Nitroglycerin Sl 0.4 Mg/Tab Tab) 0.4 mg SL UD PRN PRN Reason: Chest Pain Stop: 08/11/20 21:28 Pantoprazole Sodium (Pantoprazole 40 Mg Tab) 40 mg PO BID JODY Stop: 08/11/20 21:29 Last Admin: 07/13/20 08:17 Dose: 40 mg Documented by: Spironolactone (Spironolactone 100 Mg Tab) 100 mg PO DAILY JODY Stop: 08/12/20 09:44 Last Admin: 07/13/20 10:14 Dose: 100 mg Documented by: (1) Cirrhosis Ascites presence: with ascites Hepatic cirrhosis type: alcoholic cirrhosis Qualified Code(s): K70.31 - Alcoholic cirrhosis of liver with ascites
[2020-07-13] MEDS: SPIRONOLACTONE 100 MG TAB PO SCH (10:14)
--- NOTE | 2020-07-13 12:07 | Gastrointestinal Consultation ---
Date of Consultation July 13, 2020 Assessment & Plan (1) Cirrhosis: (2) Ascites: Pt is a 59 male w hx of STILES & ETOH cirrhosis seen for increased ascites accumulation likely related to diuretic non compliance & increased salty food intake - U/S guided paracentesis w cell ct, fluid study (protein, albumin), cx - Increase Lasix 40mg daily and Spironolactone 100mg daily - 2g Na diet - F/U in GI clinic upon DC for continued cirrhosis management Supervising Physician Co-Signing Physician Notes I have seen and examined the patient and discussed the management with LORETA Aceves. 59 yo male with a history of etoh cirrhosis, admitted with ascites that appears to be worsening. No evidence of pvt on imaging. MELD tristian 8 Reports recently eating out a lot and perhaps eating more salt. Up titration of diuretics, and outpt fup. History of Present Illness Reason for Consultation: Ascites Requesting Physician: Dr. Martínez Saucedo Attending Physician: Dr. Michelle Peter History of Present Illness Pt is a 59 y/o male w hx of ETOH, STILES cirrhosis, previous hx of GI bleeding, esophageal varices banding in [place] most recently who was admitted for CP symptoms associated w cough, mild SOB and increased abd distension, report <5 lbs weight gain in last few weeks. Cardiology consulted, no plans for cardiac cath at this time. He was recently seen by our GI provider (LORETA Shepard) in June 2020. Repeat EGD/Colonoscopy scheduled on 07/26/2020. He was on diuretics regimen of: Furosemide 20mg + Spironolactone 50mg. He admits he hasn't been taking these for last 2 weeks. Also been eating out a lot given currently living in hotel while building a house. He denies any symptoms now of abd pain, n/v, leg edema. Bowels move regularly w/o rectal bleeding or dark tarry stools. Allergies Allergy/AdvReac Type Severity Reaction Status Date / Time No Known Allergies Allergy Unverified 07/12/20 16:58 Home Medications Medication Instructions Recorded Confirmed Type ascorbic acid (vitamin C) [Vitamin 500 mg PO 2XWK 07/12/20 07/12/20 History C] aspirin 81 mg PO DAILY 07/12/20 07/12/20 History cholecalciferol (vitamin D3) 25 mcg PO 2XWK 07/12/20 07/12/20 History [Vitamin D3] furosemide 20 mg PO DAILY 07/12/20 07/12/20 History glyburide 1.25 mg PO DAILY 07/12/20 07/12/20 History metformin 500 mg PO BID 07/12/20 07/12/20 History metoprolol succinate 25 mg PO DAILY 07/12/20 07/12/20 History multivitamin 1 tab PO DAILY 07/12/20 07/12/20 History nitroglycerin 0.4 mg SUBLINGUAL DIRECTED PRN 07/12/20 07/12/20 History omeprazole 40 mg PO BID 07/12/20 07/12/20 History spironolactone 50 mg PO DAILY 07/12/20 07/12/20 History trazodone 50 mg PO HS PRN 07/12/20 07/12/20 History vitamin B complex [B Complex] 1 cap PO 3XWK 07/12/20 07/12/20 History Patient History Medical History Cirrhosis Diabetes mellitus, type II Esophageal varices Surgical History History of colonoscopy History of esophagogastroduodenoscopy (EGD) Family History Other Cancer Diabetes Social History Smoking Status: Former smoker Do You Dip or Chew Tobacco: No; Hx Alcohol Use: No Hx Substance Use: No Preferred Language: Belgian Communication Ability: Effective Pan Cleaner Required: No Beliefs That Will Affect Care: None Current Living Situation: Spouse Other Information That Helps Us Care for You: Yes Feels Safe at Home: Yes Safety Concerns: Feels Safe At This Time Assistive Devices: Glasses Review of Systems Review of Systems: All systems reviewed & are unremarkable except as noted in HPI & below Physical Exam Constitutional: WD/WN, vitals as above well groomed, cooperative and comfortable Eyes: PERRL, conjunctivae normal, anicteric sclerae ENMT: external ear and nose normal, oropharynx normal Respiratory: normal respiratory effort, lungs clear to auscultation Cardiovascular: RRR, no murmur, no edema Gastrointestinal (Abdomen): Inspection/Auscultation: + abdomen distended (mild ) and + hypoactive bowel sounds Percussion/Palpation: abdomen nontender Skin: no rashes, warm and dry no jaundice Neurologic: Motor/Sensory: no asterixis Psychiatric: A+Ox3, euthymic affect Lymphatic: no lymphedema Results & Data ([facility]) Vital Signs (Past 12 Hours) Vital Signs Temp Pulse Pulse Resp BP Pulse Ox 07/13/20 09:56 57 L 07/13/20 08:11 36.5 C 80 16 119/64 99 07/13/20 04:00 36.7 C 81 18 134/80 97 07/13/20 00:11 36.8 C 82 16 131/76 97 (1) Cirrhosis Ascites presence: with ascites Hepatic cirrhosis type: alcoholic cirrhosis Qualified Code(s): K70.31 - Alcoholic cirrhosis of liver with ascites
--- NOTE | 2020-07-13 15:10 | Ultrasound Report ---
US abdomen ltd ascites HISTORY: 59 years-old Male ascites ascites with cirrhosis. COMPARISON: CT abdomen and pelvis 07/12/2020 TECHNIQUE: Multiple real-time sonographic images of the abdomen were obtained assessing grayscale tristian earance and color flow FINDINGS: A small volume of abdominal ascites is noted with intermixed loops of bowel. Although a small pocket of drainable fluid was seen within the abdominal left lower quadrant with the patient in a left later al decubitus position, no large pockets were identified. I personally had a lengthy discussion with t he patient answering many questions regarding the ordered paracentesis and started to obtain written consent for the procedure. The patient however felt more comfortable to have a paracentesis in the [facility] when he had a larger volume of ascitic fluid within his abdominal cavity. I voiced understanding with this request and the procedure was not conducted. The patient was then sent back to his room on the floor. IMPRESSION: Small volume of abdominal ascites. Paracentesis not conducted. ACT 112: Negative or not required by law. The above report was generated using voice recognition software. It may contain grammatical, syntax o r spelling errors. Electronically signed by: Ivan Wells M.D. 07/13/2020 3:09 PM
--- NOTE | 2020-07-14 01:03 | Hospitalist Progress Note ---
Date of Service July 14, 2020 Assessment & Plan (1) Angina pectoris: Pt is 59 y/o M with PMH cirrhosis, esophageal varices, prior alcohol use, DM II presented to ER for intermittent CP/SOB with exertion x several months No Current CP or SOB at rest. Outpatient Echo 07/11/2020: EF >70%, no significant valvular heart disease, grade 1 diastolic dysfunction. Outpatient lipids 06/2020: Total: 134, HDL: 52, LDL: 67, triglycerides: 76 In ER negative troponin, EKG sinus rhythm, prolonged Qtc Pt received lasix 40mg IV and had 540ml urine output recorded in ER. Had 2 prior voids that were undocumented. Reassess output and volume status in the morning to determine further Lasix dosing. Continued home spironolactone Trend troponin Cardiology consulted - pt noncompliant w/ medications, clinically much improved after diuresis Plan to increase pt's spironolactone and furosemide (2) Elevated d-dimer: In ER D-dimer: 4380 CTA Chest no PE (3) Cirrhosis: ETOH cirrhosis w/ varices banded in 2019 Prior ETOH use. Reports last drink 2018 CT ABD/PELVIS: Cirrhosis with manifestations of portal hypertension including moderate ascites, moderate splenomegaly and extensive varices formation. Patent main, left and right portal veins. Ascites within an umbilical hernia. H/H: 9.2/31 (Hgb 9.9 in 06/25), PLT: 69 (62 in 06/2020 ), INR: 1.4, at baseline GI consulted plan for paracentesis Spironolactone and furosemide increased Follow up w/ GI as outpt (4) Diabetes mellitus, type II: A1c: 6.2 in 06/2020 Hold oral meds NovoLog sliding scale per protocol DVT Prophylaxis -SCDs Full Code as per discussion with pt, however would not prolonged life support if poor prognosis Follows with Dr Grace for routine care Admission and Anticipated Discharge Date Admission Date: July 12, 2020 Subjective Pt seen in follow up of chest pain, shortness of breath, ascites. Pt is laying in bed in NAD, reports that he is feeling much better now after diuretics. Currently denies chest pain, shortness of breath, abd. pain, nausea, vomit. Plan for paracentesis at 2pm. Concerned about being discharged in time for closing on his house tomorrow. Review of Systems Review of Systems: All systems reviewed & are unremarkable except as noted in HPI & below Constitutional: no fever and no chills Respiratory: no cough and no dyspnea Cardiovascular: no chest pain and no palpitations Gastrointestinal: no abdominal pain and no vomiting Physical Exam Physical Exam: General: no distress Head: normocephalic, atraumatic Eyes: PERRL, EOM's intact, conjunctiva non-injected, anicteric ENT: normal inspection external ears, nose, mucous membranes moist Neck: supple, trachea midline Lungs: clear, no respiratory distress, no wheezing/rhonchi/rales CV: RRR, no murmur, no JVD, trace pretibial edema Abd: protuberant, normal BS, soft, non-tender Ext: no cyanosis, no calf tenderness Neuro: A&O x 3, no focal deficits noted, normal affect Skin: warm, dry Results & Data Results & Data ([facility]) Vital Signs (Past 12 Hours) Vital Signs Temp Pulse Resp BP Pulse Ox 07/13/20 23:40 36.7 C 80 16 134/68 98 07/13/20 20:10 37.3 C 79 21 129/64 99 07/13/20 15:34 36.7 C 70 21 128/74 97 Laboratory Results 07/13/20 07/13/20 07/13/20 Range/Units 20:27 16:18 11:22 WBC (4.8-10.8) K/uL RBC (4.7-6.1) M/uL Hgb (14.0-18.0) g/dL Hct (42-52) % MCV (80-100) fL MCH (25-34) pg MCHC (32-36) g/dL RDW Std Deviation (36.4-46.3) fL RDW Coeff of Lizandro (11.5-14.5) % Plt Count (130-400) K/uL MPV (7.4-10.4) fL Sodium (136-145) mmol/L Potassium (3.5-5.1) mmol/L Chloride (98-107) mmol/L Carbon Dioxide (21-32) mmol/L Anion Gap (3-11) BUN (7-18) mg/dl Creatinine (0.6-1.4) mg/dl Est Cr Clr Drug Dosing ml/min Est GFR ( Amer) Est GFR (Non-Af Amer) BUN/Creatinine Ratio (10-20) Glucose (70-99) mg/dl POC Glucose 142 H 250 H 179 H (70-99) mg/dl Calcium (8.5-10.1) mg/dl Total Bilirubin (0.2-1) mg/dl AST (15-37) U/L ALT (12-78) U/L Alkaline Phosphatase (45-117) U/L Troponin I (0-0.045) ng/ml Total Protein (6.4-8.2) gm/dl Albumin (3.4-5.0) gm/dl Globulin (2.5-4.0) gm/dl Albumin/Globulin Ratio (0.9-2) 07/13/20 07/13/20 07/13/20 Range/Units 07:43 03:26 03:26 WBC 3.17 L (4.8-10.8) K/uL RBC 3.27 L (4.7-6.1) M/uL Hgb 8.2 L (14.0-18.0) g/dL Hct 28.2 L (42-52) % MCV 86.2 (80-100) fL MCH 25.1 (25-34) pg MCHC 29.1 L (32-36) g/dL RDW Std Deviation 46.7 H (36.4-46.3) fL RDW Coeff of Lizandro 14.7 H (11.5-14.5) % Plt Count 70 L (130-400) K/uL MPV 9.7 (7.4-10.4) fL Sodium 138 (136-145) mmol/L Potassium 3.8 (3.5-5.1) mmol/L Chloride 107 (98-107) mmol/L Carbon Dioxide 28 (21-32) mmol/L Anion Gap 3.0 (3-11) BUN 8 (7-18) mg/dl Creatinine 0.64 (0.6-1.4) mg/dl Est Cr Clr Drug Dosing 133.1 ml/min Est GFR ( Amer) 122.5 Est GFR (Non-Af Amer) 105.7 BUN/Creatinine Ratio 11.7 (10-20) Glucose 147 H (70-99) mg/dl POC Glucose 156 H (70-99) mg/dl Calcium 8.1 L (8.5-10.1) mg/dl Total Bilirubin 1.1 H (0.2-1) mg/dl AST 30 (15-37) U/L ALT 22 (12-78) U/L Alkaline Phosphatase 89 (45-117) U/L Troponin I < 0.015 (0-0.045) ng/ml Total Protein 6.9 (6.4-8.2) gm/dl Albumin 2.8 L (3.4-5.0) gm/dl Globulin 4.1 H (2.5-4.0) gm/dl Albumin/Globulin Ratio 0.7 L (0.9-2) (1) Cirrhosis Ascites presence: with ascites Hepatic cirrhosis type: alcoholic cirrhosis Qualified Code(s): K70.31 - Alcoholic cirrhosis of liver with ascites
--- NOTE | 2020-07-14 05:53 | Electrocardiogram Report ---
Test Reason : Blood Pressure : / mmHG Vent. Rate : 069 BPM Atrial Rate : 069 BPM P-R Int : 160 ms QRS Dur : 098 ms QT Int : 472 ms P-R-T Axes : 034 075 024 degrees QTc Int : 505 ms Poor data quality, interpretation may be adversely affected Normal sinus rhythm Prolonged QT Abnormal ECG No previous ECGs available Confirmed by Cornel Duong ([id number]) on 07/14/2020 5:53:42 AM Referred By: Amos Hill Confirmed By:Cornel Duong
--- NOTE | 2020-07-14 05:54 | Electrocardiogram Report ---
Test Reason : Blood Pressure : / mmHG Vent. Rate : 064 BPM Atrial Rate : 064 BPM P-R Int : 162 ms QRS Dur : 100 ms QT Int : 472 ms P-R-T Axes : 027 074 016 degrees QTc Int : 486 ms Normal sinus rhythm Prolonged QT Abnormal ECG No previous ECGs available Confirmed by Cornel Duong ([id number]) on 07/14/2020 5:54:03 AM Referred By: IVAN Confirmed By:Cornel Duong
[2020-07-14 07:18] LABS: Hematocrit (blood only) 29.5 % (42-52); Hemoglobin 8.7 g/dL (14.0-18.0); Mean Corpuscular Hemoglobin 25.1 pg (25-34); Mean Corpuscular Hgb Conc 29.5 g/dL (32-36); Mean Corpuscular Volume 85.3 fL (80-100); RDW Coefficient of Variation 14.6 % (11.5-14.5); RDW Standard Deviation 45.8 fL (36.4-46.3); Red Blood Count 3.46 M/uL (4.7-6.1); White Blood Count 3.05 K/uL (4.8-10.8)
[2020-07-14 07:40] LABS: Mean Platelet Volume 10.1 fL (7.4-10.4); Platelet Count 81 K/uL (130-400)
[2020-07-14 07:50] LABS: Albumin Level 2.9 gm/dl (3.4-5.0); Calcium 8.7 mg/dl (8.5-10.1); Creatinine Clr Calc Pharmacy 122.4 ml/min; Est GFR (African American) 118.8; Est GFR (Non-African American) 102.5; Magnesium 1.9 mg/dl (1.8-2.4); Potassium 3.6 mmol/L (3.5-5.1)
[2020-07-14 07:53] LABS: Albumin Globulin Ratio 0.7 (0.9-2); Bilirubin,Total 1.2 mg/dl (0.2-1); Globulin 4.2 gm/dl (2.5-4.0); Phosphorus 3.3 mg/dl (2.5-4.9); Total Protein 7.1 gm/dl (6.4-8.2)
[2020-07-14] MEDS: PANTOprazole 40 MG TAB PO SCH (08:08)
[2020-07-14] MEDS: METOPROLOL SUCC 25MG EXT REL TAB PO SCH (08:09)
[2020-07-14] MEDS: SPIRONOLACTONE 100 MG TAB PO SCH (08:09)
[2020-07-14] MEDS: INSULIN ASPART 100 UNITS/ML 3 ML PEN SC SCH (08:10)
--- NOTE | 2020-07-14 08:16 | Hospitalist Progress Note ---
Date of Service July 14, 2020 Assessment & Plan (1) Angina pectoris: Pt is 59 y/o M with PMH cirrhosis, esophageal varices, prior alcohol use, DM II presented to ER for intermittent CP/SOB with exertion x several months No Current CP or SOB at rest. Outpatient Echo 07/11/2020: EF >70%, no significant valvular heart disease, grade 1 diastolic dysfunction. Outpatient lipids 06/2020: Total: 134, HDL: 52, LDL: 67, triglycerides: 76 In ER negative troponin, EKG sinus rhythm, prolonged Qtc Received IV lasix in the ED and yesterday Now clinically improved after diuresis Troponin x3 -negative Cardiology consulted - pt noncompliant w/ medications, clinically much improved after diuresis Recommend to increase pt's spironolactone (100 mg daily) and furosemide (40 mg daily) (2) Elevated d-dimer: In ER D-dimer: 4380 CTA Chest no PE (3) Cirrhosis: ETOH cirrhosis w/ varices banded in 2019 Prior ETOH use. Reports last 2018 CT ABD/PELVIS: Cirrhosis with manifestations of portal hypertension including moderate ascites, moderate splenomegaly and extensive varices formation. Patent main, left and right portal veins. Ascites within an umbilical hernia. H/H: 9.2/31 (Hgb 9.9 in 06/25), PLT: 69 (62 in 06/2020 ), INR: 1.4, at baseline GI consulted plan for paracentesis - pt only had a small pocket, paracentesis was attempted but not done Spironolactone and furosemide increased Follow up w/ GI as outpt (4) Diabetes mellitus, type II: A1c: 6.2 in 06/2020 Hold oral meds NovoLog sliding scale per protocol DVT Prophylaxis -SCDs Full Code as per discussion with pt, however would not prolonged life support if poor prognosis Follows with Dr Grace for routine care Admission and Anticipated Discharge Date Admission Date: July 12, 2020 Subjective Pt seen in follow up of chest pain, shortness of breath, ascites. Pt is sitting up in bed in NAD, reports that he is feeling much better now after diuretics. Currently denies chest pain, shortness of breath, abd. pain, nausea, vomit. Denies any dizziness or lightheadedness with ambulation. Paracentesis not done yesterday, small pocket. Concerned about being discharged in time for closing on his house today. Review of Systems Review of Systems: All systems reviewed & are unremarkable except as noted in HPI & below Constitutional: no fever and no chills Respiratory: no cough and no dyspnea Cardiovascular: no chest pain and no palpitations Gastrointestinal: no abdominal pain, no nausea and no vomiting Physical Exam Physical Exam: General: no distress Head: normocephalic, atraumatic Eyes: PERRL, EOM's intact, conjunctiva non-injected, anicteric ENT: normal inspection external ears, nose, mucous membranes moist Neck: supple, trachea midline Lungs: clear, no respiratory distress, no wheezing/rhonchi/rales CV: RRR, no murmur, no JVD, trace pretibial edema Abd: protuberant, normal BS, soft, non-tender Ext: no cyanosis, no calf tenderness Neuro: A&O x 3, no focal deficits noted, normal affect Skin: warm, dry Results & Data Results & Data ([facility]) Vital Signs (Past 12 Hours) Vital Signs Temp Pulse Pulse Resp BP Pulse Ox 07/14/20 07:57 36.6 C 69 18 132/78 98 07/14/20 07:17 72 07/14/20 04:22 36.7 C 72 16 125/66 98 07/13/20 23:40 36.7 C 80 16 134/68 98 Laboratory Results 07/14/20 07/14/20 07/14/20 Range/Units 07:21 06:32 06:32 WBC 3.05 L (4.8-10.8) K/uL RBC 3.46 L (4.7-6.1) M/uL Hgb 8.7 L (14.0-18.0) g/dL Hct 29.5 L (42-52) % MCV 85.3 (80-100) fL MCH 25.1 (25-34) pg MCHC 29.5 L (32-36) g/dL RDW Std Deviation 45.8 (36.4-46.3) fL RDW Coeff of Lizandro 14.6 H (11.5-14.5) % Plt Count 81 L (130-400) K/uL MPV 10.1 (7.4-10.4) fL Sodium 140 (136-145) mmol/L Potassium 3.6 (3.5-5.1) mmol/L Chloride 108 H (98-107) mmol/L Carbon Dioxide 26 (21-32) mmol/L Anion Gap 6.0 (3-11) BUN 9 (7-18) mg/dl Creatinine 0.69 (0.6-1.4) mg/dl Est Cr Clr Drug Dosing 122.4 ml/min Est GFR ( Amer) 118.8 Est GFR (Non-Af Amer) 102.5 BUN/Creatinine Ratio 13.0 (10-20) Glucose 148 H (70-99) mg/dl POC Glucose 235 H (70-99) mg/dl Calcium 8.7 (8.5-10.1) mg/dl Phosphorus 3.3 (2.5-4.9) mg/dl Magnesium 1.9 (1.8-2.4) mg/dl Total Bilirubin 1.2 H (0.2-1) mg/dl AST 23 (15-37) U/L ALT 18 (12-78) U/L Alkaline Phosphatase 88 (45-117) U/L Total Protein 7.1 (6.4-8.2) gm/dl Albumin 2.9 L (3.4-5.0) gm/dl Globulin 4.2 H (2.5-4.0) gm/dl Albumin/Globulin Ratio 0.7 L (0.9-2) 07/13/20 07/13/20 07/13/20 Range/Units 20:27 16:18 11:22 WBC (4.8-10.8) K/uL RBC (4.7-6.1) M/uL Hgb (14.0-18.0) g/dL Hct (42-52) % MCV (80-100) fL MCH (25-34) pg MCHC (32-36) g/dL RDW Std Deviation (36.4-46.3) fL RDW Coeff of Lizandro (11.5-14.5) % Plt Count (130-400) K/uL MPV (7.4-10.4) fL Sodium (136-145) mmol/L Potassium (3.5-5.1) mmol/L Chloride (98-107) mmol/L Carbon Dioxide (21-32) mmol/L Anion Gap (3-11) BUN (7-18) mg/dl Creatinine (0.6-1.4) mg/dl Est Cr Clr Drug Dosing ml/min Est GFR ( Amer) Est GFR (Non-Af Amer) BUN/Creatinine Ratio (10-20) Glucose (70-99) mg/dl POC Glucose 142 H 250 H 179 H (70-99) mg/dl Calcium (8.5-10.1) mg/dl Phosphorus (2.5-4.9) mg/dl Magnesium (1.8-2.4) mg/dl Total Bilirubin (0.2-1) mg/dl AST (15-37) U/L ALT (12-78) U/L Alkaline Phosphatase (45-117) U/L Total Protein (6.4-8.2) gm/dl Albumin (3.4-5.0) gm/dl Globulin (2.5-4.0) gm/dl Albumin/Globulin Ratio (0.9-2) Medications Administered Current Inpatient Medications Acetaminophen (Acetaminophen 325 Mg Tab) 650 mg PO Q4H PRN PRN Reason: Pain or Fever Stop: 08/11/20 21:28 Aspirin (Aspirin 81 Mg Ectab) 81 mg PO DAILY JODY Stop: 08/12/20 08:59 Last Admin: 07/13/20 08:18 Dose: 81 mg Documented by: Dextrose (Dextrose 50% 50 Ml Syringe) 25 - 50 ml IV UD PRN; Protocol PRN Reason: Hypoglycemia Protocol Stop: 08/11/20 21:28 Furosemide (Furosemide 40 Mg Tab) 40 mg PO DAILY JODY Stop: 08/13/20 08:59 Glucagon (Glucagon For Inj 1 Mg Vial) 1 mg SQ UD PRN; Protocol PRN Reason: Hypoglycemia Protocol Stop: 08/11/20 21:28 Glucose (Glucose 10 Tabs/Tube) 4 - 8 tabs PO UD PRN; Protocol PRN Reason: Hypoglycemia Protocol Stop: 08/11/20 21:28 Glucose (Glucose 40% Gel 15 Gm Tube) 15 - 30 gm PO UD PRN; Protocol PRN Reason: Hypoglycemia Protocol Stop: 08/11/20 21:28 Insulin Aspart (Insulin Aspart 100 Units/Ml 3 Ml Pen) 0 units SC ACHS JODY Stop: 08/11/20 21:28 Last Admin: 07/13/20 20:33 Dose: Not Given Documented by: Metoprolol Succinate (Metoprolol Succ 25mg Ext Rel Tab) 25 mg PO DAILY JODY Stop: 08/12/20 08:59 Last Admin: 07/13/20 08:18 Dose: 25 mg Documented by: Miscellaneous (Carbohydrates For Hypoglycemia ) 15 - 30 gm PO UD PRN PRN Reason: Hypoglycemia Protocol Stop: 08/11/20 21:28 Multivitamins (Multivitamin Tab) 1 tab PO DAILY JODY Stop: 08/12/20 08:59 Last Admin: 07/13/20 08:18 Dose: 1 tab Documented by: Nitroglycerin (Nitroglycerin Sl 0.4 Mg/Tab Tab) 0.4 mg SL UD PRN PRN Reason: Chest Pain Stop: 08/11/20 21:28 Pantoprazole Sodium (Pantoprazole 40 Mg Tab) 40 mg PO BID JODY Stop: 08/11/20 21:29 Last Admin: 07/13/20 20:34 Dose: 40 mg Documented by: Potassium Chloride (Potassium Chloride Crtab 20 Meq Tabcr) 40 meq PO NOW STA Stop: 07/14/20 08:14 Spironolactone (Spironolactone 100 Mg Tab) 100 mg PO DAILY JODY Stop: 08/12/20 09:44 Last Admin: 07/13/20 10:14 Dose: 100 mg Documented by: (1) Cirrhosis Ascites presence: with ascites Hepatic cirrhosis type: alcoholic cirrhosis Qualified Code(s): K70.31 - Alcoholic cirrhosis of liver with ascites
[2020-07-14] MEDS ORDERED: POTASSIUM CHLORIDE CRTAB 20 MEQ TABCR PO ONE (08:45)
[2020-07-14] MEDS ORDERED: FUROSEMIDE 40 MG TAB PO SCH (09:00)
--- NOTE | 2020-07-14 09:09 | Cardiology Progress Note ---
Date of Service July 14, 2020 Assessment & Plan (1) Chest pain: (2) Noncompliance with medication regimen: (3) Anemia: (4) Thrombocytopenia: (5) Cirrhosis: (6) H/O alcohol abuse: (7) Esophageal varices: (8) Diabetes mellitus, type II: (9) Normal nuclear stress test: My initial concern was that the patient was suffering from unstable angina, however, given the fact that he symptoms have resolved, was noncompliant with his medications and now with chest pain being resolved after receiving 1 dose of diuretics I am less suspicious of ischemia. Recent outpatient Lexiscan nuclear stress test was nonischemic and repeat echocardiogram in our office showed no new wall motion abnormalities. Of further concern, is the patient's significant thrombocytopenia, anemia and esophageal varices. I would be very hesitant to proceed with cardiac catheterization given the possible need for dual antiplatelet therapy given the above. This was discussed with the patient at great length today and he is in agreement. Appreciate input from our GI colleagues, for paracentesis today. I have increase his spironolactone to 100 mg daily and will start Lasix 40 mg p.o. daily as well. The need for medication adherence was stressed at great lengths to the patient and he states that he will not comply. Continue metoprolol started as an outpatient Okay to discharge to home from a cardiac standpoint. Admission and Anticipated Discharge Date Admission Date: July 12, 2020 Subjective Patient seen and examined, chart reviewed. States that he feels great with diuresis and his complaints have resolved. Denies any further chest pain, shortness of breath, palpitations, lightheadedness, dizziness or syncope. Review of Systems Review of Systems: All systems reviewed & are unremarkable except as noted in HPI & below Physical Exam Physical Exam: General: Awake, alert and oriented x 3. No acute distress. HEENT: Normocephalic, atraumatic. Pupils equal, round and reactive to light and accommodation. Extraocular muscles are intact. Anicteric sclera. Moist mucous membranes. Neck: No JVD. No bruit. Cardiovascular: Regular. Positive S-4. Normal S-1 and S-2. No S-3. 3/6 mid to late systolic ejection murmur, greatest at the right sternal border, second intercostal space with radiation to the bilateral carotids. No rubs. Pulmonary: Clear to auscultation bilaterally. No rales, rhonchi, or wheezing. Abdomen: Bowel sounds x 4, distended. No rebound, guarding or tenderness. No organomegaly. Extremities: No clubbing, cyanosis or edema. +2 pedal pulses bilaterally. Skin: Warm and dry. Results & Data ([facility]) Vital Signs (Past 12 Hours) Vital Signs Temp Pulse Pulse Resp BP Pulse Ox 07/14/20 07:57 36.6 C 69 18 132/78 98 07/14/20 07:17 72 07/14/20 04:22 36.7 C 72 16 125/66 98 07/13/20 23:40 36.7 C 80 16 134/68 98 (1) Cirrhosis Ascites presence: with ascites Hepatic cirrhosis type: alcoholic cirrhosis Qualified Code(s): K70.31 - Alcoholic cirrhosis of liver with ascites
--- NOTE | 2020-07-14 09:51 | Discharge Summary ---
Date of Service July 14, 2020 Admission HPI Per Admitting Provider Pt is 59 y/o M with PMH cirrhosis, esophageal varices, prior alcohol use, DM II presented to ER for intermittent chest pain. Patient was referred to hospital by cardiology, Dr. Hill yesterday however patient came today. He reports he has been having intermittent chest pain and shortness of breath with exertion for several months. Also reports PND. Reports was told had mild heart attack in 05/2020 in [place]. Pt states did not have cardiac cath at that time. Saw cardiology yesterday and was restarted on metoprolol and goal of cardiac catheterization. Had outpatient echo yesterday with EF >70%, no significant valvular heart disease, grade 1 diastolic dysfunction. Pt denies any current CP or SOB. Reports has gained approximately 8 pounds over the past couple weeks. He denies any noted extremity edema or increased abdominal girth. Is getting established with [facility] and has abdominal ultrasound scheduled for 07/14/2020. Pt reports last ETOH drink in 2019. Denies fever/chills, diaphoresis, N/V/D/C, RASHEED, dizziness, syncope, vision changes, neck pain, palpitations, cough, sore throat, choking, otalgia, rhinorrhea, abdominal pain, paresthesias, weakness, extremity weakness, rashes, urinary symptoms. Pt received lasix 40mg IV and had 540ml urine output recorded in ER during my examination. Had 2 prior voids that were undocumented. Admission Exam Per Admitting Provider General: no distress, overweight Head: normocephalic, atraumatic Eyes: PERRL, EOM's intact, conjunctiva non-injected, anicteric ENT: normal inspection external ears, nose, mucous membranes moist Neck: supple, trachea midline Lungs: clear, no respiratory distress, no wheezing/rhonchi/rales CV: RRR, no murmur, no JVD, trace pretibial edema Abd: protuberant, normal BS, soft, non-tender Ext: no cyanosis, no calf tenderness Neuro: A&O x 3, no focal deficits noted, normal affect Skin: warm, dry Principal Diagnosis chest pain and shortness of breath d/t fluid overload, alcoholic cirrhosis and ascites Discharge Exam General: no distress Head: normocephalic, atraumatic Eyes: PERRL, EOM's intact, conjunctiva non-injected, anicteric ENT: normal inspection external ears, nose, mucous membranes moist Neck: supple, trachea midline Lungs: clear, no respiratory distress, no wheezing/rhonchi/rales CV: RRR, no murmur, no JVD, trace pretibial edema Abd: protuberant, normal BS, soft, non-tender Ext: no cyanosis, no calf tenderness Neuro: A&O x 3, no focal deficits noted, normal affect Skin: warm, dry Discharge Data Allergies Allergy/AdvReac Type Severity Reaction Status Date / Time No Known Allergies Allergy Unverified 07/12/20 16:58 Consultations 07/12/20 17:46 ED Decision to Admit Stat 07/13/20 00:13 Consult Gastroenterology Routine 07/13/20 08:00 Consult Cardiology Routine Ordered Studies 07/12/20 16:25 CT angio chest PE protocol Stat IMPRESSION: 1. No evidence for pulmonary embolus. 2. No focal lung consolidations to suggest pneumonia. 3. Mild mosaic attenuation within the lungs suggestive of air-trapping. This can be seen in the setting of small airways disease. 4. Borderline cardiomegaly. 07/12/20 16:26 CT abd pelvis IV con only Stat IMPRESSION: 1. Cirrhosis with manifestations of portal hypertension including moderate ascites, moderate splenomegaly and extensive varices formation. Patent main, left and right portal veins. Ascites within an umbilical hernia. 2. Moderate gallbladder wall thickening, a nonspecific finding in the setting of cirrhosis. 3. Colonic diverticulosis without evidence for acute diverticulitis. Normal appendix. No bowel obstruction. 07/13/20 14:00 US abdomen ltd ascites Routine IMPRESSION: Small volume of abdominal ascites. Paracentesis not conducted. Hospital Course (1) Angina pectoris: Alcoholic cirrhosis of liver with ascites causing shortness of breath and chest pain Medication noncompliance Pt is 59 y/o M with PMH cirrhosis, esophageal varices, prior alcohol use, DM II presented to ER for intermittent CP/SOB with exertion x several months No Current CP or SOB at rest. Outpatient Echo 07/11/2020: EF >70%, no significant valvular heart disease, grade 1 diastolic dysfunction. Outpatient lipids 06/2020: Total: 134, HDL: 52, LDL: 67, triglycerides: 76 In ER negative troponin, EKG sinus rhythm, prolonged Qtc Received IV lasix in the ED and yesterday Now clinically improved after diuresis Troponin x3 -negative Cardiology consulted - pt noncompliant w/ medications, clinically much improved after diuresis Recommend to increase pt's spironolactone (100 mg daily) and furosemide (40 mg daily) (2) Elevated d-dimer: In ER D-dimer: 4380 CTA Chest no PE (3) Cirrhosis: ETOH cirrhosis w/ varices banded in 2019 Prior ETOH use. Reports last 2018 CT ABD/PELVIS: Cirrhosis with manifestations of portal hypertension including moderate ascites, moderate splenomegaly and extensive varices formation. Patent main, left and right portal veins. Ascites within an umbilical hernia. H/H: 9.2/31 (Hgb 9.9 in 06/25), PLT: 69 (62 in 06/2020 ), INR: 1.4, at baseline GI consulted plan for paracentesis - pt only had a small pocket, paracentesis was attempted but not done Spironolactone and furosemide increased Follow up w/ GI as outpt (4) Diabetes mellitus, type II: A1c: 6.2 in 06/2020 Hold oral meds NovoLog sliding scale per protocol Follows with Dr Grace for routine care Total Time Total Time Spent Total Time Spent (In Minutes): 37 Total Time Includes: Examination of the Patient, Discharge Planning, Medication Reconciliation and Communication With Other Providers Discharge Plan Discharge Items Patient Disposition: Home - Self-Care Reason For Visit: CP Discharge Diagnosis: chest pain and shortness of breath d/t fluid overload, cirrhosis and ascites Condition on Discharge: Good Activity: Per Instructions section Non-emergency contact: Primary Care Provider, Criminal Lawyer and [employer] Operator Call non-emergency contact if: you have any medication questions and your symptoms worsen Follow-up/Referrals: Brenda Grace MD [Primary Care Provider] - (Date & Time 07/18/2020 11:20 AM Provider Brenda Grace MD Department General Internal Medicine [facility] ) Diet: Carb Consistent or DM2, Heart Healthy and Low Sodium (2gm) Addtl Attending Provider Instructions: Follow up with your primary care doctor, the appointment was scheduled for you for 07/18/2020. Your medications were adjusted - take spironolactone 100 mg daily and furosemide 40 mg daily. Continue to take metoprolol as is. Adhere to low sodium diet. Recommend to weigh yourself daily and keep a log of these numbers. Bring this to your health care providers for them to review. Pending Studies at Discharge: No Stand-Alone Forms: My [facility], Smoking Cessation Medications and DC Order Prescriptions: New spironolactone 100 mg Tablet 100 mg PO DAILY 30 Days Qty: 30 RF: 0 furosemide 40 mg Tablet 40 mg PO DAILY 30 Days Qty: 30 RF: 0 Continued multivitamin Tablet 1 tab PO DAILY RF: 0 metformin 500 mg Tablet 500 mg PO BID RF: 0 trazodone 50 mg Tablet 50 mg PO HS PRN (Reason: Sleep) RF: 0 ascorbic acid (vitamin C) [Vitamin C] 500 mg Tablet 500 mg PO 2XWK RF: 0 metoprolol succinate 25 mg Tablet Extended Release 24 Hr 25 mg PO DAILY RF: 0 glyburide 1.25 mg Tablet 1.25 mg PO DAILY RF: 0 vitamin B complex [B Complex] Capsule 1 cap PO 3XWK RF: 0 cholecalciferol (vitamin D3) [Vitamin D3] 25 mcg (1,000 unit) Tablet 25 mcg PO 2XWK RF: 0 omeprazole 40 mg Capsule,Delayed Release(Dr/Ec) 40 mg PO BID RF: 0 aspirin 81 mg Tablet 81 mg PO DAILY RF: 0 nitroglycerin 0.4 mg Tablet, Sublingual 0.4 mg sublingual DIRECTED PRN (Reason: Chest Pain) RF: 0 Discontinued furosemide 20 mg Tablet 20 mg PO DAILY RF: 0 spironolactone 50 mg Tablet 50 mg PO DAILY RF: 0 Discharge Orders: Discharge Order (Routine); Ordered 07/14/20 Ordered By: Martínez Saucedo Admission Data Admit Date/Time: 07/12/20 18:15 Attending Provider: Martínez Saucedo Admit Provider: Sonia Sheridan Primary Care Provider: Brenda Grace Other Providers: Sonia Sheridan ; Aron Clifton ; Michelle Peter
--- NOTE | 2020-07-14 11:16 | Gastroenterology Progress Note ---
Date of Service July 14, 2020 Assessment & Plan (1) Cirrhosis: (2) Ascites: Pt is a 59 male w hx of STILES & ETOH cirrhosis seen for increased ascites accumulation likely related to diuretic non compliance & increased salty food intake. MELD 8 - Not enough ascites to undergo paracentesis yesterday. Continue Lasix 40mg daily and Spironolactone 100mg daily, 2g Na diet - F/U in GI clinic upon DC for continued cirrhosis management - EGD/Colonoscopy outpt scheduled for 07/26/2020 - GI to sign off; recall prn Admission and Anticipated Discharge Date Admission Date: July 12, 2020 Supervising Physician Co-Signing Physician Notes The patient had been discharged prior to afternoon rounds. I did discuss the case with Ms. Sarabia, the patient has follow-up arranged with our office. Please call with any questions or concerns Subjective Pt feels well, denies CP, SOB, abd pain, n/v. Not enough ascites to undergo paracentesis yesterday Review of Systems Review of Systems: All systems reviewed & are unremarkable except as noted in HPI & below Physical Exam Constitutional: WD/WN, vitals as above well groomed, cooperative and comfo rtable Eyes: PERRL, conjunctivae normal, anicteric sclerae ENMT: external ear and nose normal, oropharynx normal Respiratory: normal respiratory effort, lungs clear to auscultation Cardiovascular: RRR, no murmur, no edema Gastrointestinal (Abdomen): Inspection/Auscultation: + abdomen distended (mild ) and + hypoactive bowel sounds Percussion/Palpation: abdomen nontender Skin: no rashes, warm and dry no jaundice Neurologic: Motor/Sensory: no asterixis Psychiatric: A+Ox3, euthymic affect Lymphatic: no lymphedema Results & Data ([facility]) Vital Signs (Past 12 Hours) Vital Signs Temp Pulse Pulse Resp BP Pulse Ox 07/14/20 09:54 36.6 C 69 18 132/78 98 07/14/20 07:57 36.6 C 69 18 132/78 98 07/14/20 07:17 72 07/14/20 04:22 36.7 C 72 16 125/66 98 07/13/20 23:40 36.7 C 80 16 134/68 98 (1) Cirrhosis Ascites presence: with ascites Hepatic cirrhosis type: alcoholic cirrhosis Qualified Code(s): K70.31 - Alcoholic cirrhosis of liver with ascites
== END 2020-07-14 10:49 | disposition home or self-care (01) | DRG 433 ==
LOC: ED 14:09 → INTOOBSV 18:15 → SUATTDRO 18:15 → 2S 18:15